=== PATIENT | male | born 1950 | race African-American/Black ===

== ENCOUNTER → 2021-02-27 | Day surgery (SDC) | payer OTHER ==
[~2021-02-27] VITALS: Ht 170.2 cm; Wt 81.0 kg
[~2021-02-27] MED LIST: IV RINGERS,LACTATED 1000ML 1,000 ML IV SCH; LIDOCAINE 2% PF 5 ML VIAL. ONE; PROPOFOL 10 MG/ML (20ML) VIAL. IV ONE; TRIA1TAB3 PO
[2021-02-27 07:18] VITALS: BP 158/82
[2021-02-27 08:54] VITALS: BP 142/88
--- NOTE | 2021-02-28 01:34 | HP ---
ADMIT DATE: 02/27/2021 UPDATED HISTORY AND PHYSICAL REFERRING PHYSICIAN: Jered Petersen MD REASON: Colorectal screening. HISTORY OF PRESENT ILLNESS: A 71-year-old male whose past medical history is significant for hypertension, is seen for interval colonoscopy. Last exam was done approximately 10 years ago, which was unrevealing for pathology. Bowel habits are regular without diarrhea or constipation. There has been no melena and/or hematochezia. Family history is unrevealing for colon cancer. He is otherwise without additional complaints. PAST MEDICAL HISTORY: Hypertension. ALLERGIES: None. MEDICATIONS: Include triamterene/hydrochlorothiazide. PAST SURGICAL HISTORY: Noncontributory. FAMILY HISTORY: Noncontributory. REVIEW OF SYSTEMS: Per records. PHYSICAL EXAMINATION: GENERAL: Reveals a well-nourished, well-developed male who is alert, cooperative, in no acute distress. VITAL SIGNS: Temp 97.7, pulse 67, respiratory rate 20. LUNGS: Clear. CARDIOVASCULAR: Reveals an S1, S2, without S3, S4 or appreciable murmur. ABDOMEN: Reveals a soft abdomen, normal bowel sounds, without appreciable hepatosplenomegaly. EXTREMITIES: Reveals no cyanosis, clubbing or edema. IMPRESSION: Colorectal screening is warranted at this time. Risks and benefits of procedure including risk of hemorrhage and perforation with operation have been discussed. The patient is willing to proceed. BETSY DR: Adry TID: [id number]
== END | disposition home or self-care (01) ==
LOC: ENDOS 06:56
PROVIDERS: ATTEND Internal Medicine Gastroenterology
DX: Z12.11 Encounter for screening for malignant neoplasm of colon (principal); K63.89 Other specified diseases of intestine; K64.0 First degree hemorrhoids; I12.9 Hypertensive chronic kidney disease with stage 1 through stage 4 chronic kidney disease, or unspecified chronic kidney disease; N18.9 Chronic kidney disease, unspecified; M19.90 Unspecified osteoarthritis, unspecified site; N40.0 Benign prostatic hyperplasia without lower urinary tract symptoms; Z79.899 Other long term (current) drug therapy; Z98.890 Other specified postprocedural states
CPT/HCPCS: G0121; J2704; 45378